=== PATIENT | male | born 1985 | race Caucasian/White ===

== ENCOUNTER 2017-04-16 09:43 | Emergency (ER) | payer SELFPAY ==
[~2017-04-16] VITALS: Ht 177.8 cm; Wt 117.9 kg
[~2017-04-16 09:43] MED LIST: HYDR-2678 PO; HYDR-3074 PO; HYDR-971 PO; OMEP20TA PO; ONDA4TAB10 SL; ONDA8TAB12 PO; PROM25TA10 PO
[2017-04-16] MEDS ORDERED: ONDANSETRON PF 4 MG/2 ML VIAL. ONE (10:03)
--- NOTE | 2017-04-16 10:09 | PHYS DOC ---
Past Medical History Past Medical History: No Pertinent History Past Surgical History: No Surgical History Alcohol Use: None Drug Use: Marijuana Adult General Chief Complaint Chief Complaint: NAUSEA/VOMITING/DIARRHA HPI HPI Patient is a 31 year old male presents to the emergency department with generalized abdominal pain with vomiting and diarrhea. Patient states the vomiting started yesterday and he cannot provide the amount of times he vomited. Patient was active and able to identify whether there was blood in the emesis as he has eaten spaghetti. Patient states she's had 3 diarrhea stools in the last 24 hours with no blood noted in the stools. Patient states he's been running a fever although has not taken his temperature. Patient does state that he has had chills. Review of Systems Review of Systems Constitutional: Denies fever or chills [] Eyes: Denies change in visual acuity, redness, or eye pain [] HENT: Denies nasal congestion or sore throat [] Respiratory: Denies cough or shortness of breath [] Cardiovascular: No additional information not addressed in HPI [] GI: abdominal pain, vomiting, and diarrhea [] : Denies dysuria or hematuria [] Musculoskeletal: Denies back pain or joint pain [] Integument: Denies rash or skin lesions [] Neurologic: Denies headache, focal weakness or sensory changes [] Endocrine: Denies polyuria or polydipsia [] Current Medications Current Medications Current Medications Medications (Trade) Dose Ordered Sig/Yaquelin Start Time Stop Time Status Last Admin Dose Admin Fentanyl Citrate (Fentanyl 2ml Vial) 50 mcg 1X ONCE 04/16/17 11:15 04/16/17 11:16 DC 04/16/17 11:04 50 MCG Ondansetron HCl (Zofran) 4 mg STK-MED ONCE 04/16/17 10:03 04/16/17 10:04 DC Promethazine HCl (Phenergan Im) 25 mg 1X ONCE 04/16/17 11:00 04/16/17 11:01 DC 04/16/17 11:00 25 MG Sodium Chloride 1,000 ml @ 1,000 mls/hr 1X ONCE 04/16/17 10:30 04/16/17 11:29 DC 04/16/17 10:05 1,000 MLS/HR Allergies Allergies Allergies Coded Allergies Type Severity Reaction Last Updated Verified Penicillins Allergy Intermediate 02/05/16 Yes Physical Exam Physical Exam Constitutional: Well developed, well nourished, no acute distress, non-toxic appearance. [] HENT: Normocephalic, atraumatic, bilateral external ears normal, oropharynx moist, no oral exudates, nose normal. [] Eyes: PERRLA, EOMI, conjunctiva normal, no discharge. [] Neck: Normal range of motion, no tenderness, supple, no stridor. [] Cardiovascular:Heart rate regular rhythm, no murmur [] Lungs & Thorax: Bilateral breath sounds clear to auscultation [] Abdomen: Bowel sounds hypoactive, soft, generalized tenderness, no masses, no pulsatile masses. Patient with no guarding noted. Skin: Warm, dry, no erythema, no rash. [] Back: No tenderness Extremities: No tenderness, no cyanosis, no clubbing, ROM intact, no edema. [] Neurologic: Alert and oriented X 3, normal motor function, normal sensory function, no focal deficits noted. [] Psychologic: Affect normal, judgement normal, mood normal. [] Current Patient Data Vital Signs Vital Signs Date Time Temp Pulse Resp B/P (MAP) Pulse Ox O2 Delivery O2 Flow Rate FiO2 04/16/17 11:37 63 20 144/117 (126) 99 04/16/17 09:54 98.1 Room Air 98.1 Lab Values Laboratory Tests Test 04/16/17 10:00 White Blood Count 11.6 x10^3/uL (4.0-11.0) H Red Blood Count 5.19 x10^6/uL (4.30-5.70) Hemoglobin 16.1 g/dL (13.0-17.5) Hematocrit 46.8 % (39.0-53.0) Mean Corpuscular Volume 90 fL (79-100) Mean Corpuscular Hemoglobin 31 pg (25-35) Mean Corpuscular Hemoglobin Concent 35 g/dL (31-37) Red Cell Distribution Width 12.8 % (11.5-14.5) Platelet Count 313 x10^3/uL (140-400) Neutrophils (%) (Auto) 55 % (31-73) Lymphocytes (%) (Auto) 31 % (24-48) Monocytes (%) (Auto) 10 % (0-9) H Eosinophils (%) (Auto) 4 % (0-3) H Basophils (%) (Auto) 1 % (0-3) Neutrophils # (Auto) 6.3 x10^3uL (1.8-7.7) Lymphocytes # (Auto) 3.6 x10^3/uL (1.0-4.8) Monocytes # (Auto) 1.1 x10^3/uL (0.0-1.1) Eosinophils # (Auto) 0.5 x10^3/uL (0.0-0.7) Basophils # (Auto) 0.1 x10^3/uL (0.0-0.2) Platelet Estimate Pending Sodium Level 142 mmol/L (136-145) Potassium Level 4.4 mmol/L (3.5-5.1) Chloride Level 104 mmol/L (98-107) Carbon Dioxide Level 28 mmol/L (21-32) Anion Gap 10 (6-14) Blood Urea Nitrogen 15 mg/dL (8-26) Creatinine 0.9 mg/dL (0.7-1.3) Estimated GFR (Cockcroft-Gault) 99.1 BUN/Creatinine Ratio 17 (6-20) Glucose Level 137 mg/dL (70-99) H Calcium Level 9.6 mg/dL (8.5-10.1) Total Bilirubin 0.4 mg/dL (0.2-1.0) Aspartate Amino Transferase (AST) 40 U/L (15-37) H Alanine Aminotransferase (ALT) 97 U/L (16-63) H Alkaline Phosphatase 104 U/L (46-116) Total Protein 7.7 g/dL (6.4-8.2) Albumin 4.0 g/dL (3.4-5.0) Albumin/Globulin Ratio 1.1 (1.0-1.7) Amylase Level 52 U/L (25-115) Lipase 242 U/L (73-393) Laboratory Tests 04/16/17 10:00 Laboratory Tests 04/16/17 10:00 EKG EKG [] Radiology/Procedures Radiology/Procedures [] Course & Med Decision Making Course & Med Decision Making Pertinent Labs and Imaging studies reviewed. (See chart for details) She was provided with Zofran here in the emergency department patient was also provided with 1 L of normal saline. Patient then had dry heaves after he came back from radiology he was then provided with Phenergan IM. He continued to have abdominal pain and discomfort and was provided with fentanyl. Patient's CBC and chemistries are within normal limits. X-rays was normal. Patient will be discharged home in stable condition signs symptoms to return back to emergency department been provided. Patient will be provided with a prescription for Zofran as well as Benadryl. Recommended he follow up with his GI physician in the next 3-5 days. Dragon Disclaimer Dragon Disclaimer This electronic medical record was generated, in whole or in part, using a voice recognition dictation system. Departure Departure Impression: Primary Impression: Abdominal pain Additional Impression: Nausea vomiting and diarrhea Disposition: HOME, SELF-CARE Condition: STABLE Referrals: RUI CARNEY MD (PCP) Patient Instructions: Abdominal Pain (Nonspecific), Diarrhea, Ahat-cf-Acer, Diet for Diarrhea, Adult, Nausea and Vomiting, [id number] Additional Instructions: Activity as tolerated. Medication as prescribed. Clear Liquid diet for the next 24 hours. Follow-up with your GI physician in the next 3-5 days. Emergency department sign symptoms become worse. Scripts Dicyclomine Hcl (BENTYL) 10 Mg Capsule 1 CAP PO TID, #30 CAP Prov: CATRACHO RAMIREZ APRN 04/16/17 Ondansetron (ZOFRAN ODT) 4 Mg Tab.rapdis 1 TAB SL Q8HRS, #10 TAB Prov: CATRACHO RAMIREZ APRN 04/16/17 Problem Qualifiers CATRACHO RAMIREZ APRN April 16, 2017 10:09
[2017-04-16 10:22] LABS: CALCIUM 9.6 mg/dL (8.5-10.1); CREATININE 0.9 mg/dL (0.7-1.3); GFR 99.1; POTASSIUM 4.4 mmol/L (3.5-5.1)
[2017-04-16 10:23] LABS: AMYLASE 52 U/L (25-115)
[2017-04-16 10:28] LABS: ALBUMIN/GLOBULIN RATIO 1.1 (1.0-1.7); TOTAL BILIRUBIN 0.4 mg/dL (0.2-1.0); TOTAL PROTEIN 7.7 g/dL (6.4-8.2)
[2017-04-16] MEDS ORDERED: IV NORMAL SALINE 1000ML BAG 1,000 ML IV ONE (10:30)
[2017-04-16] MEDS ORDERED: ONDANSETRON PF 4 MG/2 ML VIAL. IV ONE (10:30)
--- NOTE | 2017-04-16 10:32 | RAD ---
Examination: Acute abdomen series. History: History of pain in the upper abdomen, nausea Comparison: 10/08/2016 Findings: The cardiomediastinal silhouette grossly appears unremarkable. There is no acute infiltrate or visualized pneumothorax identified. No evidence of free air noted under the hemidiaphragms. The bowel gas pattern appears unremarkable. Feces and gas noted throughout the colon. Impression: 1. No acute cardiopulmonary findings. 2. Unremarkable bowel gas pattern.
[2017-04-16 10:52] LABS: BASO # 0.1 x10^3/uL (0.0-0.2); BASO % 1 % (0-3); EOS % 4 % (0-3); HEMATOCRIT 46.8 % (39.0-53.0); HEMOGLOBIN 16.1 g/dL (13.0-17.5); LYMPH # 3.6 x10^3/uL (1.0-4.8); LYMPH % 31 % (24-48); MEAN CORPUSCULAR HEMOGLOBIN 31 pg (25-35); MEAN CORPUSCULAR HGB CONC 35 g/dL (31-37); MEAN CORPUSCULAR VOLUME 90 fL (79-100); MONO % 10 % (0-9); NEUT % 55 % (31-73); PLATELET COUNT 313 x10^3/uL (140-400); RED BLOOD COUNT 5.19 x10^6/uL (4.30-5.70); RED CELL DISTRIBUTION WIDTH 12.8 % (11.5-14.5); WHITE BLOOD COUNT 11.6 x10^3/uL (4.0-11.0)
[2017-04-16] MEDS ORDERED: PROMETHAZINE IM 25 MG/ML VIAL IM ONE (11:00)
[2017-04-16] MEDS ORDERED: fentaNYL PF VIAL 100 MCG/2 ML VIAL IV ONE (11:15)
[2017-04-16 11:37] VITALS: BP 144/117
[2017-04-16] MEDS ORDERED: DICY10CA53 PO (11:59)
[2017-04-16] MEDS ORDERED: ONDA4TAB10 SL (11:59)
[2017-04-16 12:30] LABS: % BASOS 2 % (0-3); % EOS 5 % (0-5); PLT ESTIMATE ADEQUATE (ADEQUATE)
== END 2017-04-16 12:16 | disposition home or self-care (01) ==
LOC: ER 09:43
DX: R10.84 Generalized abdominal pain (principal); R11.2 Nausea with vomiting, unspecified; R19.7 Diarrhea, unspecified; R50.9 Fever, unspecified; F12.10 Cannabis abuse, uncomplicated; Z88.0 Allergy status to penicillin
CPT/HCPCS: 36415; 74022; 80053; 82150; 83690; 85007; 85027; 96361; 96372; 96374; 96375; 99285; J2405; J2550; J3010; J7030

== ENCOUNTER 2018-02-10 17:24 | Emergency (ER) | payer SELFPAY ==
[2018-02-10] MEDS: IV NORMAL SALINE 1000ML BAG 1,000 ML IV (18:35)
[2018-02-10 18:41] LABS: ADD MAN DIFF? NO
[2018-02-10] MEDS ORDERED: CONTRAST GIVEN MC (18:45)
[2018-02-10 18:50] LABS: BASO # 0.1 x10^3/uL (0.0-0.2); BASO % 1 % (0-3); EOS % 0 % (0-3); HEMATOCRIT 44.6 % (39.0-53.0); HEMOGLOBIN 15.7 g/dL (13.0-17.5); LYMPH # 1.7 x10^3/uL (1.0-4.8); LYMPH % 12 % (24-48); MEAN CORPUSCULAR HEMOGLOBIN 31 pg (25-35); MEAN CORPUSCULAR HGB CONC 35 g/dL (31-37); MEAN CORPUSCULAR VOLUME 88 fL (79-100); MONO # 0.8 x10^3/uL (0.0-1.1); MONO % 6 % (0-9); NEUT % 82 % (31-73); PLATELET COUNT 361 x10^3/uL (140-400); RED BLOOD COUNT 5.05 x10^6/uL (4.30-5.70); RED CELL DISTRIBUTION WIDTH 12.7 % (11.5-14.5); WHITE BLOOD COUNT 14.6 x10^3/uL (4.0-11.0)
[2018-02-10 18:58] LABS: ANION GAP 11 (6-14); BLOOD UREA NITROGEN 9 mg/dL (8-26); BUN/CREATININE RATIO 9 (6-20); CALCIUM 9.4 mg/dL (8.5-10.1); CARBON DIOXIDE 26 mmol/L (21-32); CHLORIDE 101 mmol/L (98-107); GFR 87.2; GLUCOSE 135 mg/dL (70-99); POTASSIUM 3.1 mmol/L (3.5-5.1); SODIUM 138 mmol/L (136-145)
[2018-02-10] MEDS: METOCLOPRAMIDE HCL 10 MG/2 ML VIAL. IV (18:58)
[2018-02-10 19:02] LABS: ALBUMIN 4.2 g/dL (3.4-5.0); ALBUMIN/GLOBULIN RATIO 1.1 (1.0-1.7); ALK PHOS 86 U/L (46-116); ALT (SGPT) 85 U/L (16-63); AST (SGOT) 33 U/L (15-37); LIPASE 170 U/L (73-393); TOTAL BILIRUBIN 0.9 mg/dL (0.2-1.0); TOTAL PROTEIN 7.9 g/dL (6.4-8.2)
[2018-02-10] MEDS: IOHEXOL 300 MG/ML 100ML VIAL. IV (19:12)
[2018-02-10 19:17] LABS: BILIRUBIN,URINE NEGATIVE (NEG); CLARITY,URINE CLEAR; COLOR,URINE YELLOW; GLUCOSE,URINE NEGATIVE (NEG); NITRITE,URINE NEGATIVE (NEG); PROTEIN,URINE NEGATIVE (NEG-TRACE); UROBILINOGEN,URINE 0.2 mg/dL (0.2 mg/dL)
[2018-02-10 19:23] LABS: BACTERIA,URINE 0 /HPF (0-FEW); RBC,URINE OCC /HPF (0-2); SQUAMOUS EPITHELIAL CELL,UR OCC /LPF; WBC,URINE OCC /HPF (0-4)
[2018-02-10 19:51] LABS: TROPONINI < 0.017 ng/mL (0.000-0.055)
[2018-02-10 20:10] LABS: INFLUENZA A PATIENT NEGATIVE (NEGATIVE); INFLUENZA B PATIENT NEGATIVE (NEGATIVE); OBC FLU VALID
== END 2018-02-10 21:34 | disposition home or self-care (01) ==
LOC: ER 17:24
DX: R10.84 Generalized abdominal pain (principal); R11.2 Nausea with vomiting, unspecified; F12.10 Cannabis abuse, uncomplicated; Z88.0 Allergy status to penicillin
CPT/HCPCS: 36415; 74177; 80053; 81001; 83690; 84484; 85025; 87804; 87804-59; 96361; 96374; 99285-25; J2765; J7030; Q9967

== ENCOUNTER 2020-04-25 05:43 | Emergency (ER) | payer OTHER ==
[~2020-04-25] VITALS: Ht 177.8 cm; Wt 104.5 kg
[~2020-04-25 05:43] MED LIST changes: +DICY10CA53 PO; -HYDR-3074 PO; +HYDR-3107 PO; +HYDR-3164 PO; -HYDR-971 PO; -OMEP20TA PO; +OMEP20TA8 PO
--- NOTE | 2020-04-25 06:15 | PHYS DOC ---
Past Medical History Past Medical History: Hypertension Past Surgical History: No Surgical History Smoking Status: Current Every Day Smoker Alcohol Use: None Drug Use: Marijuana General Adult EDM: Chief Complaint: rectum pain, lower abdominal pain HPI: HPI: Patient is a 34 year old male who presented to ER today for evaluation of low abdominal pain, rectal pain, blood in his stool for about 3 days. Patient also complained of nausea and vomiting. Patient has history of abdominal pain that he been evaluated by GI specialist already. Patient denies any fever, no cough. Patient denies take any blood thinner. Patient complained of pain when he had a bowel movement, noted bright red blood in his stool. Review of Systems: Review of Systems: Constitutional: Denies fever or chills. [] Eyes: Denies change in visual acuity. [] HENT: Denies nasal congestion or sore throat. [] Respiratory: Denies cough or shortness of breath. [] Cardiovascular: Denies chest pain or edema. [] GI: Positive for abdominal pain, rectal pain, bloody stool. : Denies dysuria. [] Musculoskeletal: Denies back pain or joint pain. [] Integument: Denies rash. [] Neurologic: Denies headache, focal weakness or sensory changes. [] Endocrine: Denies polyuria or polydipsia. [] Lymphatic: Denies swollen glands. [] Psychiatric: Denies depression or anxiety. [] Heart Score: Risk Factors: Risk Factors: DM, Current or recent (<one month) smoker, HTN, HLP, family history of CAD, obesity. Risk Scores: Score 0 - 3: 2.5% MACE over next 6 weeks - Discharge Home Score 4 - 6: 20.3% MACE over next 6 weeks - Admit for Clinical Observation Score 7 - 10: 72.7% MACE over next 6 weeks - Early Invasive Strategies Allergies: Allergies: Allergies Coded Allergies Type Severity Reaction Last Updated Verified Penicillins Allergy Intermediate 02/05/16 Yes Physical Exam: PE: Constitutional: Well developed, well nourished, no acute distress, non-toxic appearance. [] HENT: Normocephalic, atraumatic, bilateral external ears normal, oropharynx moist, no oral exudates, nose normal. [] Eyes: PERRLA, EOMI, conjunctiva normal, no discharge. [] Neck: Normal range of motion, no tenderness, supple, no stridor. [] Cardiovascular:Heart rate regular rhythm, no murmur [] Lungs & Thorax: Bilateral breath sounds clear to auscultation [] Abdomen: Bowel sounds normal, soft, there is tenderness to palpation in suprapubic area, no masses, no pulsatile masses. There is no external hemorrhoids. NO rectal bleeding at this time. Skin: Warm, dry, no erythema, no rash. [] Back: No tenderness, no CVA tenderness. [] Extremities: No tenderness, no cyanosis, no clubbing, ROM intact, no edema. [] Neurologic: Alert and oriented X 3, normal motor function, normal sensory function, no focal deficits noted. [] Psychologic: Affect normal, judgement normal, mood normal. [] Current Patient Data: Vital Signs: Vital Signs Date Time Temp Pulse Resp B/P (MAP) Pulse Ox O2 Delivery O2 Flow Rate FiO2 04/25/20 06:03 98.6 100 16 137/62 (87) 97 Room Air 98.6 EKG: EKG: [] Radiology/Procedures: Radiology/Procedures: [facility] [address] [place] [address] IMAGING REPORT Signed PATIENT: ABIGAIL HARO MACCOUNT: [id number] : 1985 LOCATION: ER AGE: 34 SEX: M EXAM STATUS: REG ER ORD. PHYSICIAN: FABBY TODD DO REASON: Lower abdominal pain, rectal pain. PROCEDURE: CT ABD PELV W/ IV CONTRST ONLY Examination: CT ABD PELV W/ IV CONTRST ONLY History: Lower abdominal pain. Rectal pain. Comparison/Correlation: 02/10/2018 CT abdomen and pelvis Findings: Axial images of the abdomen and pelvis were obtained following IV contrast. Sagittal and coronal reformatted images were provided. Visualized lung bases are clear. Small sliding hiatal hernia is present. Liver, spleen, pancreas, and adrenal glands are normal. Right kidney is normal. Low-attenuation lesion involving the left renal interpolar region is stable and probably represents a cyst. No further follow-up required. Appendix is normal. Diverticulosis is present without findings of inflammation. No enlarged abdominal or pelvic lymph nodes. No ascites or pelvic free fluid in gallbladder fossa is unremarkable. No bowel obstruction. No inflammatory findings about the rectum. Urinary bladder is unremarkable. Bilateral L5 pars interarticularis fractures are again seen with no significant anterolisthesis. Moderate L4-5 disc space narrowing with mild concentric disc bulge is identified. Impression: Small sliding hiatal hernia. Bilateral L5 pars interarticularis fractures without significant malalignment. No acute process. PQRS Compliance Statement: One or more of the following individualized dose reduction techniques were utilized for this examination: 1. Automated exposure control 2. Adjustment of the mA and/or kV according to patient size 3. Use of iterative reconstruction technique Electronically signed by: Jack Salas MD (04/25/2020 8:08 AM) [id number] DICTATED and SIGNED BY: JACK SALAS MD DATE: 04/25/20807 Course & Med Decision Making: Course & Med Decision Making Pertinent Labs and Imaging studies reviewed. (See chart for details) Patient is a 34-year-old male who presented to ER today due to abdominal pain, rectal pain. Patient most likely has some poor form of hemorrhoid. There is no active rectal bleeding, no external hemorrhoid noted on examination. Patient also has sliding hiatal hernia causing him to have abdominal pain, acid reflux. Patient will be discharged home with medication. Patient will need to follow- up with a GI doctor for further evaluation and treatment. Patient is amenable to plan of care. Dragon Disclaimer: Dragbereket Disclaimer: This electronic medical record was generated, in whole or in part, using a voice recognition dictation system. Departure Departure Impression: Primary Impression: Abdominal pain Additional Impressions: Rectal pain Hiatal hernia Disposition: 01 HOME, SELF-CARE Condition: STABLE Referrals: NO PCP (PCP) please follow up with your GI doctor next week for reevaluation. Patient Instructions: Abdominal Pain, Hiatal Hernia Scripts Tramadol Hcl (TRAMADOL HCL) 50 Mg Tablet 50 MG PO Q6HRS PRN for PAIN, #20 TAB Prov: FABBY TODD DO 04/25/20 Hydrocortisone (ANUSOL-HC) 30 Gm Cream..g. 1 GEMMA TP TID for 10 Days, #30 GM 0 Refills Prov: FABBY TODD DO 04/25/20 Omeprazole Magnesium (PRILOSEC OTC) 20 Mg Tablet.dr 1 TAB PO DAILY for 30 Days, #30 TAB 0 Refills Prov: FABBY TODD DO 04/25/20 Sucralfate (CARAFATE) 1 Gm Tablet 1 TAB PO QID for 30 Days, #120 TAB 0 Refills Prov: FABBY TODD DO 04/25/20 FABBY TODD DO April 25, 2020 06:15
[2020-04-25 06:33] LABS: BILIRUBIN,URINE NEGATIVE (NEG); CLARITY,URINE CLEAR; COLOR,URINE YELLOW; NITRITE,URINE NEGATIVE (NEG); PH,URINE 5.5 (<5.0-8.0); PROTEIN,URINE NEGATIVE (NEG-TRACE); UROBILINOGEN,URINE 0.2 mg/dL (0.2 mg/dL)
[2020-04-25 06:38] LABS: BASO # 0.1 x10^3/uL (0.0-0.2); BASO % 1 % (0-3); EOS # 0.6 x10^3/uL (0.0-0.7); EOS % 6 % (0-3); HEMATOCRIT 43.2 % (39.0-53.0); HEMOGLOBIN 15.4 g/dL (13.0-17.5); LYMPH # 3.2 x10^3/uL (1.0-4.8); LYMPH % 31 % (24-48); MEAN CORPUSCULAR HEMOGLOBIN 32 pg (25-35); MEAN CORPUSCULAR HGB CONC 36 g/dL (31-37); MEAN CORPUSCULAR VOLUME 90 fL (79-100); MONO # 1.2 x10^3/uL (0.0-1.1); MONO % 11 % (0-9); NEUT # 5.5 x10^3/uL (1.8-7.7); NEUT % 52 % (31-73); PLATELET COUNT 391 x10^3/uL (140-400); RED BLOOD COUNT 4.82 x10^6/uL (4.30-5.70); RED CELL DISTRIBUTION WIDTH 12.7 % (11.5-14.5); WHITE BLOOD COUNT 10.6 x10^3/uL (4.0-11.0)
[2020-04-25 06:42] LABS: CALCIUM 9.4 mg/dL (8.5-10.1); GFR 86.1; POTASSIUM 3.7 mmol/L (3.5-5.1)
[2020-04-25 06:47] LABS: ALBUMIN 4.3 g/dL (3.4-5.0); ALBUMIN/GLOBULIN RATIO 1.2 (1.0-1.7); TOTAL BILIRUBIN 0.6 mg/dL (0.2-1.0); TOTAL PROTEIN 7.8 g/dL (6.4-8.2)
[2020-04-25 06:51] LABS: BACTERIA,URINE 0 /HPF (0-FEW); HYALINE CASTS, URINE OCCASIONAL /HPF; RBC,URINE 0 /HPF (0-2); SQUAMOUS EPITHELIAL CELL,UR OCC /LPF
[2020-04-25] MEDS ORDERED: IOHEXOL 300 MG/ML 100ML VIAL. IV ONE (07:15)
[2020-04-25] MEDS ORDERED: CONTRAST GIVEN. MC PRN (07:45)
--- NOTE | 2020-04-25 08:11 | RAD ---
Examination: CT ABD PELV W/ IV CONTRST ONLY History: Lower abdominal pain. Rectal pain. Comparison/Correlation: 02/10/2018 CT abdomen and pelvis Findings: Axial images of the abdomen and pelvis were obtained following IV contrast. Sagittal and coronal reformatted images were provided. Visualized lung bases are clear. Small sliding hiatal hernia is present. Liver, spleen, pancreas, and adrenal glands are normal. Right kidney is normal. Low-attenuation lesion involving the left renal interpolar region is stable and probably represents a cyst. No further follow-up required. Appendix is normal. Diverticulosis is present without findings of inflammation. No enlarged abdominal or pelvic lymph nodes. No ascites or pelvic free fluid in gallbladder fossa is unremarkable. No bowel obstruction. No inflammatory findings about the rectum. Urinary bladder is unremarkable. Bilateral L5 pars interarticularis fractures are again seen with no significant anterolisthesis. Moderate L4-5 disc space narrowing with mild concentric disc bulge is identified. Impression: Small sliding hiatal hernia. Bilateral L5 pars interarticularis fractures without significant malalignment. No acute process. PQRS Compliance Statement: One or more of the following individualized dose reduction techniques were utilized for this examination: 1. Automated exposure control 2. Adjustment of the mA and/or kV according to patient size 3. Use of iterative reconstruction technique Electronically signed by: Jack Salas MD (04/25/2020 8:08 AM) [id number]
[2020-04-25] MEDS ORDERED: TRAM50TA PO (08:52)
[2020-04-25] MEDS ORDERED: SUCR1TAB35 PO (08:52)
[2020-04-25] MEDS ORDERED: OMEP20TA63 PO (08:52)
[2020-04-25] MEDS ORDERED: HYDR30CR61 TP (08:52)
[2020-04-25 08:55] VITALS: BP 132/69
== END 2020-04-25 09:00 | disposition home or self-care (01) ==
LOC: ER 05:43
DX: K44.9 Diaphragmatic hernia without obstruction or gangrene (principal); I10 Essential (primary) hypertension; F17.200 Nicotine dependence, unspecified, uncomplicated; Z88.0 Allergy status to penicillin
CPT/HCPCS: 36415; 74177; 80053; 81001; 83690; 85025; 99285; Q9967

== ENCOUNTER 2021-03-03 16:20 | Emergency (ER) | payer OTHER ==
[~2021-03-03] VITALS: Ht 177.8 cm; Wt 113.0 kg
[~2021-03-03 16:20] MED LIST changes: +HYDR30CR61 TP; +LISI20TA18 PO; +OMEP20TA63 PO; +SUCR1TAB35 PO; +TRAM50TA PO
[2021-03-03] MEDS ORDERED: ONDANSETRON PF 4 MG/2 ML VIAL. IVP ONE ×2 (16:45→19:15)
[2021-03-03] MEDS ORDERED: FAMOTIDINE 20 MG/2 ML VIAL IVP ONE (16:45)
[2021-03-03] MEDS ORDERED: IV NORMAL SALINE 1000ML BAG 1,000 ML IV ONE (16:45)
[2021-03-03] MEDS ORDERED: KETOROLAC 15 MG/ML VIAL. IVP ONE (16:45)
[2021-03-03 17:13] LABS: BASO # 0.1 x10^3/uL (0.0-0.2); BASO % 0 % (0-3); EOS % 0 % (0-3); HEMATOCRIT 41.7 % (39.0-53.0); HEMOGLOBIN 14.6 g/dL (13.0-17.5); LYMPH # 1.7 x10^3/uL (1.0-4.8); LYMPH % 11 % (24-48); MEAN CORPUSCULAR HEMOGLOBIN 31 pg (25-35); MEAN CORPUSCULAR HGB CONC 35 g/dL (31-37); MEAN CORPUSCULAR VOLUME 89 fL (79-100); MONO # 0.7 x10^3/uL (0.0-1.1); MONO % 4 % (0-9); NEUT # 13.9 x10^3/uL (1.8-7.7); NEUT % 85 % (31-73); PLATELET COUNT 371 x10^3/uL (140-400); RED BLOOD COUNT 4.71 x10^6/uL (4.30-5.70); RED CELL DISTRIBUTION WIDTH 12.6 % (11.5-14.5); WHITE BLOOD COUNT 16.4 x10^3/uL (4.0-11.0)
[2021-03-03 17:18] LABS: CALCIUM 9.5 mg/dL (8.5-10.1); GFR 85.5; POTASSIUM 3.5 mmol/L (3.5-5.1)
[2021-03-03 17:24] LABS: ALBUMIN 4.1 g/dL (3.4-5.0); ALBUMIN/GLOBULIN RATIO 1.1 (1.0-1.7); TOTAL BILIRUBIN 0.9 mg/dL (0.2-1.0); TOTAL PROTEIN 7.7 g/dL (6.4-8.2)
[2021-03-03] MEDS ORDERED: IOHEXOL 300 MG/ML 100ML VIAL. IV ONE (17:30)
--- NOTE | 2021-03-03 17:40 | PHYS DOC ---
Past Medical History Past Medical History: GERD, Hypertension Additional Past Medical Histor: gastroparesis (MARGAUX CUTLER DO) Past Surgical History: No Surgical History (MARGAUX CUTLER DO) Smoking Status: Current Every Day Smoker Alcohol Use: None Drug Use: Marijuana (MARGAUX CUTLER DO) General Adult EDM: Chief Complaint: ABDOMINAL PAIN HPI: HPI: 35-year-old male presents with report of "severe "epigastric abdominal pain that started this morning at approximately 0300. Patient does report some associated nausea and vomiting. Patient does report history of gastritis/gastric ulcers, gastroparesis, and chronic abdominal pain. Denies known sick contacts. Denies fever or chills. Denies trauma. Denies known exposure to COVID-19. (MARGAUX CUTLER DO) Review of Systems: Review of Systems: Constitutional: Denies fever or chills Eyes: Denies redness or eye pain HENT: Denies nasal congestion or sore throat Respiratory: Denies cough or shortness of breath Cardiovascular: Denies chest pain or palpitations GI: Reports abdominal pain and nausea : Denies dysuria or hematuria Musculoskeletal: Denies back pain or joint pain Integument: Denies rash or skin lesions Neurologic: Denies headache, focal weakness or sensory changes Complete systems were reviewed and found to be within normal limits, except as documented in this note. (MARGAUX CUTLER DO) Heart Score: C/O Chest Pain: N/A (MARGAUX CUTLER DO) Current Medications: Current Medications Medications (Trade) Dose Ordered Sig/Yaquelin Start Time Stop Time Status Last Admin Dose Admin Famotidine (Pepcid Vial) 20 mg 1X ONCE 03/03/21 16:45 03/03/21 16:52 DC 03/03/21 17:15 20 MG Iohexol (Omnipaque 300 Mg/ml) 75 ml 1X ONCE 03/03/21 17:30 03/03/21 17:31 DC Ketorolac Tromethamine (Toradol 15mg Vial) 15 mg 1X ONCE 03/03/21 16:45 03/03/21 16:52 DC 03/03/21 17:15 15 MG Ondansetron HCl (Zofran) 4 mg 1X ONCE 03/03/21 16:45 03/03/21 16:52 DC 03/03/21 17:15 4 MG Sodium Chloride 1,000 ml @ 1,000 mls/hr 1X ONCE 03/03/21 16:45 03/03/21 17:44 03/03/21 17:14 1,000 MLS/HR (MARGAUX CUTLER DO) Allergies: Allergies: Allergies Coded Allergies Type Severity Reaction Last Updated Verified Penicillins Allergy Intermediate 02/05/16 Yes (MARGAUX CUTLER DO) Physical Exam: PE: Constitutional: Well developed, well nourished, uncomfortable, non-toxic appearance HENT: Normocephalic, atraumatic Eyes: Conjunctiva normal, no discharge Neck: Normal range of motion, supple Lungs & Thorax: No respiratory distress, equal chest rise and fall Abdomen: Soft, epigastric tenderness, voluntary guarding, no distention Skin: Warm, dry, no erythema, no rash Back: No tenderness, no CVA tenderness Extremities: No tenderness, ROM intact, no edema Neurologic: Alert and oriented X 3, no focal deficits noted Psychologic: Affect anxious, judgment normal (MARGAUX CUTLER DO) Current Patient Data: Labs: Laboratory Tests Test 03/03/21 16:55 White Blood Count 16.4 x10^3/uL (4.0-11.0) H Red Blood Count 4.71 x10^6/uL (4.30-5.70) Hemoglobin 14.6 g/dL (13.0-17.5) Hematocrit 41.7 % (39.0-53.0) Mean Corpuscular Volume 89 fL (79-100) Mean Corpuscular Hemoglobin 31 pg (25-35) Mean Corpuscular Hemoglobin Concent 35 g/dL (31-37) Red Cell Distribution Width 12.6 % (11.5-14.5) Platelet Count 371 x10^3/uL (140-400) Neutrophils (%) (Auto) 85 % (31-73) H Lymphocytes (%) (Auto) 11 % (24-48) L Monocytes (%) (Auto) 4 % (0-9) Eosinophils (%) (Auto) 0 % (0-3) Basophils (%) (Auto) 0 % (0-3) Neutrophils # (Auto) 13.9 x10^3/uL (1.8-7.7) H Lymphocytes # (Auto) 1.7 x10^3/uL (1.0-4.8) Monocytes # (Auto) 0.7 x10^3/uL (0.0-1.1) Eosinophils # (Auto) 0.0 x10^3/uL (0.0-0.7) Basophils # (Auto) 0.1 x10^3/uL (0.0-0.2) Platelet Estimate Pending Sodium Level 134 mmol/L (136-145) L Potassium Level 3.5 mmol/L (3.5-5.1) Chloride Level 95 mmol/L (98-107) L Carbon Dioxide Level 25 mmol/L (21-32) Anion Gap 14 (6-14) Blood Urea Nitrogen 17 mg/dL (8-26) Creatinine 1.0 mg/dL (0.7-1.3) Estimated GFR (Cockcroft-Gault) 85.5 BUN/Creatinine Ratio 17 (6-20) Glucose Level 148 mg/dL (70-99) H Calcium Level 9.5 mg/dL (8.5-10.1) Total Bilirubin 0.9 mg/dL (0.2-1.0) Aspartate Amino Transferase (AST) 26 U/L (15-37) Alanine Aminotransferase (ALT) 37 U/L (16-63) Alkaline Phosphatase 68 U/L (46-116) Creatine Kinase 438 U/L (39-308) H Creatine Kinase MB (Mass) 3.1 ng/mL (0.0-3.6) Creatine Kinase MB Relative Index 0.7 % (0-4) Troponin I Quantitative < 0.017 ng/mL (0.000-0.055) Total Protein 7.7 g/dL (6.4-8.2) Albumin 4.1 g/dL (3.4-5.0) Albumin/Globulin Ratio 1.1 (1.0-1.7) Lipase 100 U/L (73-393) Laboratory Tests 03/03/21 16:55 Laboratory Tests 03/03/21 16:55 Vital Signs: Vital Signs Date Time Temp Pulse Resp B/P (MAP) Pulse Ox O2 Delivery O2 Flow Rate FiO2 03/03/21 16:55 100.1 85 22 172/85 (114) 99 Room Air 100.1 (CUTLER,MARGAUX R DO) EKG: EKG: @1710 Sinus tachycardia at 103bpm, NO ST elevation, QRS 92ms, QT/QTc 348/458ms (MARGAUX CUTLER DO) Radiology/Procedures: Radiology/Procedures: [] (MARGAUX CUTLER DO) Impression: CT abdomen/pelvis with contrast 03/03/2021 5:22 PM INDICATION: Epigastric pain, nausea and vomiting COMPARISON: CT abdomen/pelvis 10/04/2020 TECHNIQUE: Multiple axial CT images of the abdomen and pelvis were obtained after the intravenous administration of 75 mL Omnipaque 300. Coronal and sagittal reformats are provided. FINDINGS: Visualized portions of the lung bases are clear. Heart size is within normal limits. No suspicious hepatic masses are identified. Mild hepatic steatosis, stable. Liver is homogeneous in enhancement. Spleen, bilateral adrenal glands, and pancreas are normal in appearance. Gallbladder is present without adjacent inflammatory changes. The abdominal aorta is normal in course and caliber. There are no pathologically enlarged lymph nodes in the abdomen and pelvis. There is no abdominal free fluid. There is no free intraperitoneal air. The kidneys enhance symmetrically. There is no suspicious renal mass. There is no hydronephrosis. There are no suspected calculi within the kidneys, ureters or urinary bladder. Small and large bowel are normal in caliber. Mild colonic diverticulosis. There is no evidence for bowel obstruction. There are no pericolonic inflammatory changes. A normal, nondilated appendix is visualized without adjacent inflammatory changes. Left testicle is identified in the left inguinal canal. Urinary bladder is within normal limits given degree of distention. Prostate and seminal vesicles are normal. IMPRESSION: No acute abnormality is identified as described in detail above. Electronically signed by: Gregoria Porter MD (03/03/2021 6:14 PM) [facility] (CLAUDE HARVEY DO) Course & Med Decision Making: Course & Med Decision Making Pertinent Labs and Imaging studies reviewed. (See chart for details) Patient presents with report of abdominal pain which started this morning primarily to epigastric region. Reports some nausea. Reports history of gastric ulcers. Symptomatic treatment provided. EKG stable. Labs obtained and posted to chart. CT abdomen/pelvis radiologist report pending. 1800- Sign out provided to Dr. Harvey for further evaluation and final disposition. Discussed current findings and plan with patient, who acknowledges understanding and agreement. Patient discharge paperwork provided if CT without acute process. Patient advised would need to follow closely with PCP and/or GI regarding further evaluation and treatment. GI referral planned for discharge, if appropriate. (MARGAUX CUTLER DO) Course & Med Decision Making assumed care at shift change disposition pending labs.radiology and re-evaluation. CK elevated- no other acute abnormalities. CT without acute abnormalities. Patient received IV fluids. I ordered morphine, zofran and bentyl. Discussed possible cause such as THC uses-- patient states he smoke and has been told that could be possible cause of symptoms. Patient states he does not beleive thc is cause. Discharge paper work prepared by Dr Cutler--- agree with [facility] plan and mediations. (CLAUDE HARVEY DO) Dragon Disclaimer: Dragon Disclaimer: This electronic medical record was generated, in whole or in part, using a voice recognition dictation system. (MARGAUX CUTLER DO) Departure Departure Impression: Primary Impression: Epigastric abdominal pain Additional Impression: Nausea and vomiting Qualified Codes: R11.2 - Nausea with vomiting, unspecified Disposition: 01 DC HOME SELF CARE/HOMELESS Condition: STABLE Referrals: TRISTAN TRISTAN DO (PCP) BLANQUITA SAUNDERS MD Patient Instructions: Abdominal Pain, Grqg-[id number], Gastritis, Adult, Gyom-[id number], Nausea and Vomiting, Pxlk-yr-Uiyb Scripts Famotidine (PEPCID) 20 Mg Tablet 20 MG PO BID, #20 TAB Prov: MARGAUX CUTLER DO 03/03/21 Hyoscyamine Sulfate (LEVSIN-SL) 0.125 Mg Tab.subl 0.125 MG SL Q4-6HRS PRN for PAIN, #14 TAB Prov: MARGAUX CUTLER DO 03/03/21 Ondansetron (ONDANSETRON ODT) 4 Mg Tab.rapdis 1 TAB PO PRN Q6-8HRS PRN for NAUSEA, #16 TAB Prov: MARGAUX CUTLER DO 03/03/21 MARGAUX CUTLER DO Mar 03, 2021 17:40 CLAUDE HARVEY DO Mar 03, 2021 18:27
[2021-03-03] MEDS ORDERED: ONDA4TAB12 PO (17:47)
[2021-03-03] MEDS ORDERED: FAMO-63 PO (17:47)
[2021-03-03] MEDS ORDERED: HYOS0.1265 SL (17:47)
[2021-03-03] MEDS ORDERED: HYOSCYAMINE 0.125 MG TAB.RAPDIS PO ONE (18:15)
--- NOTE | 2021-03-03 18:16 | RAD ---
PQRS Compliance Statement: One or more of the following individualized dose reduction techniques were utilized for this examinat ion: 1. Automated exposure control 2. Adjustment of the mA and/or kV according to patient size 3. Use of iterative reconstruction technique CT abdomen/pelvis with contrast 03/03/2021 5:22 PM INDICATION: Epigastric pain, nausea and vomiting COMPARISON: CT abdomen/pelvis 10/04/2020 TECHNIQUE: Multiple axial CT images of the abdomen and pelvis were obtained after the intravenous adm inistration of 75 mL Omnipaque 300. Coronal and sagittal reformats are provided. FINDINGS: Visualized portions of the lung bases are clear. Heart size is within normal limits. No suspicious hepatic masses are identified. Mild hepatic steatosis, stable. Liver is homogeneous in enhancement. Spleen, bilateral adrenal glands, and pancreas are normal in appearance. Gallbladder is present without adjacent inflammatory changes. The abdominal aorta is normal in course and caliber. There are no pathologically enlarged lymph nodes in the abdomen and pelvis. There is no abdominal free fluid. There is no free intraperitoneal air. The kidneys enhance symmetrically. There is no suspicious renal mass. There is no hydronephrosis. The re are no suspected calculi within the kidneys, ureters or urinary bladder. Small and large bowel are normal in caliber. Mild colonic diverticulosis. There is no evidence for jimbo wel obstruction. There are no pericolonic inflammatory changes. A normal, nondilated appendix is visu alized without adjacent inflammatory changes. Left testicle is identified in the left inguinal canal. Urinary bladder is within normal limits given degree of distention. Prostate and seminal vesicles ar e normal. IMPRESSION: No acute abnormality is identified as described in detail above. Electronically signed by: Gregoria Porter MD (03/03/2021 6:14 PM) [facility]
[2021-03-03 18:31] LABS: % ATYL 1 % (0-0); % BANDS 11 % (0-9); % LYMPHS 15 % (24-48); % MONOS 5 % (0-10); % SEGS 68 % (35-66); PLT ESTIMATE ADEQUATE (ADEQUATE)
[2021-03-03 18:35] LABS: BILIRUBIN,URINE NEGATIVE (NEG); CLARITY,URINE CLEAR; COLOR,URINE YELLOW; NITRITE,URINE NEGATIVE (NEG); PH,URINE 6.5 (<5.0-8.0); PROTEIN,URINE NEGATIVE (NEG-TRACE); UROBILINOGEN,URINE 0.2 mg/dL (0.2 mg/dL)
[2021-03-03 18:45] LABS: BACTERIA,URINE 0 /HPF (0-FEW)
[2021-03-03] MEDS ORDERED: MORPHINE SULFATE 2 MG/ML VIAL. IV ONE (18:45)
[2021-03-03] MEDS ORDERED: DICYCLOMINE 20 MG/2 ML VIAL. IM ONE ×2 (19:06→19:15)
[2021-03-03 19:15] VITALS: BP 137/85
--- NOTE | 2021-03-03 19:38 | EKG ---
[facility] [address] [place] [address] Test Date: 2021-03-03 Test Time: 17:10:07 Pat Name: ABIGAIL HARO Department: Room: Gender: M Tack Puller: : 1985 Requested By: MARGAUX CUTLER Order Number: [id number] Reading MD: Measurements Intervals [place] Rate: 103 P: 90 WI: 150 QRS: 89 QRSD: 92 T: 42 QT: 348 QTc: 458 Interpretive Statements SINUS TACHYCARDIA ATRIAL PREMATURE COMPLEX(ES) OTHERWISE NORMAL ECG RI6.01 No previous ECG available for comparison
== END 2021-03-03 19:33 | disposition home or self-care (01) ==
LOC: ER 16:20
DX: R10.13 Epigastric pain (principal); R11.2 Nausea with vomiting, unspecified; K21.9 Gastro-esophageal reflux disease without esophagitis; I10 Essential (primary) hypertension; F17.200 Nicotine dependence, unspecified, uncomplicated; F12.90 Cannabis use, unspecified, uncomplicated; Z88.0 Allergy status to penicillin
CPT/HCPCS: 36415; 74177; 80053; 81001; 82553; 83690; 84484; 85007; 85025; 93005; 96361; 96374; 96375; 96376; 99285; J0500; J1885; J2270; J2405; J3490; J7030; Q9967

== ENCOUNTER 2021-08-25 04:31 | Emergency (ER) | payer OTHER ==
[~2021-08-25] VITALS: Ht 177.8 cm; Wt 104.5 kg
[~2021-08-25 04:31] MED LIST changes: +FAMO-63 PO; +HYOS0.1265 SL; +ONDA4TAB12 PO
--- NOTE | 2021-08-25 05:01 | PHYS DOC ---
Past Medical History Past Medical History: GERD, Hypertension, Other Additional Past Medical Histor: gastroparesis (NADIYA LEONARD DO) Past Surgical History: No Surgical History (NADIYA LEONARD DO) Smoking Status: Current Every Day Smoker Alcohol Use: None Drug Use: Marijuana (NADIYA LEONARD DO) General Adult EDM: Chief Complaint: ABDOMINAL PAIN HPI: HPI: Patient is a 36-year-old male presenting for abdominal pain. He was recently seen and evaluated at local ER within the last couple of hours but eloped. Patient states they attempted 2 IVs that were unsuccessful and it was recommended that he come here for evaluation. Nonetheless, when calling the outside facility, they stated that he is unknown frequent flyer at their facility with numerous ER visits this past month for same symptoms. He was offered a GI cocktail and Phenergan for his symptoms but eloped prior to receiving any intervention. He has known history of gastritis and hiatal hernia that is being covered in outpatient setting by [facility]. He has history of hypertension which she is on medications for, no other medications to address hiatal hernia or ongoing abdominal issues. States symptoms started and have been constant. He endorses epigastric pain that radiates globally to his abdomen and is severe in intensity, he has not taken anything in attempt to alleviate his symptoms. On arrival he admits ongoing nausea with dry heaving. He is fully vaccinated against Covid (NADIYA LEONARD DO) Review of Systems: Review of Systems: Fourteen body systems of review of systems have been reviewed. See HPI for pertinent positives and negative responses, other schaffer all other systems are negative, non-pertinent or non-contributory (NADIYA LEONARD DO) Heart Score: C/O Chest Pain: No Risk Factors: Risk Factors: DM, Current or recent (<one month) smoker, HTN, HLP, family history of CAD, obesity. Risk Scores: Score 0 - 3: 2.5% MACE over next 6 weeks - Discharge Home Score 4 - 6: 20.3% MACE over next 6 weeks - Admit for Clinical Observation Score 7 - 10: 72.7% MACE over next 6 weeks - Early Invasive Strategies (NADIYA LEONARD DO) C/O Chest Pain: N/A (FABBY TODD DO) Allergies: Allergies: Allergies Coded Allergies Type Severity Reaction Last Updated Verified Penicillins Allergy Intermediate 02/05/16 Yes (NADIYA LEONARD DO) Physical Exam: PE: Constitutional: Well-developed age-appropriate male in moderate distress rolling around on ER cart due to pain, nontoxic HENT: Normocephalic, atraumatic, bilateral external ears normal, oropharynx moist, no oral exudates, nose normal. Eyes: PERRLA, EOMI, conjunctiva normal, no discharge. Neck: Normal range of motion, no tenderness, supple, no stridor. Cardiovascular: Heart rate regular, sinus rhythm, no murmurs rubs or gallops Lungs & Thorax: Bilateral breath sounds clear to auscultation Abdomen: Bowel sounds normal, soft, epigastric tenderness to palpation with voluntary guarding present, no rebound, no masses, no pulsatile masses. Nonsurgical abdomen, no peritoneal signs Skin: Warm, dry, no erythema, no rash. Back: No tenderness, no CVA tenderness. Extremities: No tenderness, no cyanosis, no clubbing, ROM intact, no edema. Neurologic: Alert and oriented X 3, grossly normal motor & sensory function, no focal deficits noted. Psychologic: Anxious affect and mood (NADIYA LEONARD DO) Current Patient Data: Labs: Laboratory Tests Test 08/25/21 05:20 Urine Opiates Screen Neg Urine Methadone Screen Neg Urine Barbiturates Neg Urine Phencyclidine Screen Neg Urine Amphetamine/Methamphetamine Neg Urine Benzodiazepines Screen Neg Urine Cocaine Screen Neg Urine Cannabinoids Screen Pos Urine Ethyl Alcohol Neg Current Medications Medications (Trade) Dose Ordered Sig/Yaquelin Route PRN Reason Start Time Stop Time Status Last Admin Dose Admin Multi-Ingredient Mouthwash/Gargle (Gi Cocktail) 20 ml 1X ONCE SWSW 08/25/21 05:30 08/25/21 05:31 DC 08/25/21 05:03 Promethazine HCl (Phenergan) 12.5 mg 1X ONCE PO 08/25/21 06:00 08/25/21 06:01 08/25/21 05:32 Vital Signs: Vital Signs Date Time Temp Pulse Resp B/P (MAP) Pulse Ox O2 Delivery O2 Flow Rate FiO2 08/25/21 04:48 98.6 102 16 168/78 (108) 98 Room Air 98.6 (NADIYA LEONARD DO) EKG: EKG: [] (NADIYA LEONARD DO) Radiology/Procedures: Radiology/Procedures: [] (NADIYA LEONARD DO) Radiology/Procedures: [facility] [address] [place] [address] IMAGING REPORT Signed PATIENT: ABIGAIL HAROCOUNT: [id number] : 1985 LOCATION: ER AGE: 36 SEX: M EXAM STATUS: REG ER ORD. PHYSICIAN: FABBY TODD DO REASON: Abdominal pain PROCEDURE: CT ABD PELV W/ IV CONTRST ONLY Exam: CT abdomen/pelvis with intravenous contrast Indication: Abdominal pain Comparison: CT abdomen pelvis 03/19/2021 Technique: Helical CT imaging performed of the abdomen and pelvis after the in travenous administration of 60 mL Omnipaque 300 contrast. Sagittal and coronal reformats were obtained. One or more of the following individualized dose reduction techniques were utilized for this examination: 1. Automated exposure control 2. Adjustment of the mA and/or kV according to patient size 3. Use of iterative reconstruction technique. Findings: Lower chest: There are patchy, somewhat geographic and peripheral groundglass opacities in the right lung base, new from 03/03/2021 but similar to 10/04/2020. The left lung base is clear. The heart is normal in size. Liver: The liver measures 19.5 cm in length. There is unchanged focal fat along the falciform ligament. No new liver lesions. Gallbladder/Biliary Tree: Normal. Pancreas: Normal. Spleen: Normal. Adrenal Glands: Normal Kidneys/Ureters/Bladder: Kidneys are normal in size and enhance symmetrically. Subcentimeter hypodensities bilaterally are too small to characterize but likely simple cysts. There is no hydronephrosis. Ureters and bladder are normal. Reproductive Organs: Normal. Stomach, small bowel, and colon: Small hiatal hernia. The small bowel and appendix are normal. There is mild sigmoid diverticulosis without acute diverticulitis. Vasculature: The abdominal aorta is normal in caliber. Lymph Nodes: There is no lymphadenopathy. Peritoneum and retroperitoneum: No free fluid or free air. Bones: No acute osseous abnormality. Unchanged small bone island in the left femoral head. Impression: 1. No acute abnormality of the abdomen and pelvis. 2. Mild patchy groundglass opacities in the right lung base are nonspecific but could reflect atypical pneumonia, aspiration, or pneumonitis. These are new from 03/03/2021 but similar to 10/04/2020. 3. Small hiatal hernia. Mild colonic diverticulosis. Electronically signed by: Mariela Prajapati MD (08/25/2021 8:07 AM) [id number] DICTATED and SIGNED BY: MARIELA PRAJAPATI MD DATE: 08/25/21 [id number] (FABBY TODD DO) Course & Med Decision Making: Course & Med Decision Making ABCs unremarkable GI cocktail and Phenergan were administered without significant relief in symptoms. Patient positive for marijuana which he states he stopped smoking over 1 month ago as this could be exacerbating his chronic abdominal symptoms At this time in care, patient still pending laboratory analysis. Comprehensive signout was given to oncoming physician. Please defer to Dr. Todd's documentation regarding future care of patient while in ER setting (NADIYA LEONARD DO) Course & Med Decision Making Patient is a 36-year-old male who present to ER for evaluation of abdominal pain. Patient has chronic abdominal pain, he has been evaluated here multiple times, he was seen at multiple different ER for the same problem. Patient said he was seen by GI specialist in the past for the same problem, they recommend him to stop smoking marijuana and he did 1 month ago. I suspected that patient has cyclic vomiting syndrome gastroparesis. Patient was given IV fluid and IV Reglan with pain medication in the ER, he feels much better. Patient will be discharged home, he will need to follow-up with his family physician for outpatient evaluation and treatment. Patient is amenable to plan of care (FABBY TODD DO) Dragon Disclaimer: Sukhi Disclaimer: This electronic medical record was generated, in whole or in part, using a voice recognition dictation system. (NADIYA LEONARD DO) Departure Departure Impression: Primary Impression: Abdominal pain Additional Impression: Cyclic vomiting syndrome Disposition: HOME / SELF CARE / HOMELESS Condition: IMPROVED Referrals: TRISTAN TRISTAN DO (PCP) Follow up with your doctor next week. Patient Instructions: Cyclic Vomiting Syndrome Additional Instructions: Thank you for visiting our Emergency Department. We appreciate you trusting us with your care. If any additional problems come up don't hesitate to return to visit us. Please follow up with your primary care provider so they can plan additional care if needed and know about the problem that you had. If symptoms worsen come back to the Emergency Department. Any concerning symptoms that start such as chest pain, shortness of air, weakness or numbness on one side of the body, running high fevers or any other concerning symptoms return to the ER. Scripts Metoclopramide Hcl (REGLAN) 10 Mg Tablet 1 TAB PO QID PRN for NAUSEA, #30 TAB 0 Refills before food and bedtime Prov: FABBY TODD DO 08/25/21 NADIYA LEONARD DO Aug 25, 2021 05:00 FABBY TODD DO Aug 25, 2021 08:44
[2021-08-25] MEDS ORDERED: LIDO:MAALOX 1:1 20 ML SINGLE DOSE. SWSW ONE (05:30)
[2021-08-25 05:33] LABS: BARBITURATES NEG (NEG); BENZODIAZEPINES NEG (NEG); CANNABINOIDS POS (NEG); COCAINE NEG (NEG); METHADONE NEG (NEG); OPIATES NEG (NEG); PHENCYCLIDINE NEG (NEG)
[2021-08-25 05:35] LABS: AMPHETAMINE/METHAMPHETAMINE NEG (NEG)
[2021-08-25] MEDS ORDERED: PROMETHAZINE 12.5 MG TABLET. PO ONE (06:00)
[2021-08-25] MEDS ORDERED: PANTOPRAZOLE IV PUSH 40 MG VIAL. IVP ONE (06:00)
[2021-08-25 06:15] LABS: BASO # 0.1 x10^3/uL (0.0-0.2); BASO % 1 % (0-3); EOS # 0.1 x10^3/uL (0.0-0.7); EOS % 0 % (0-3); HEMATOCRIT 40.9 % (39.0-53.0); HEMOGLOBIN 14.9 g/dL (13.0-17.5); LYMPH # 2.6 x10^3/uL (1.0-4.8); LYMPH % 16 % (24-48); MEAN CORPUSCULAR HEMOGLOBIN 32 pg (25-35); MEAN CORPUSCULAR HGB CONC 36 g/dL (31-37); MEAN CORPUSCULAR VOLUME 89 fL (79-100); MONO # 2.3 x10^3/uL (0.0-1.1); MONO % 15 % (0-9); NEUT # 10.8 x10^3/uL (1.8-7.7); NEUT % 68 % (31-73); PLATELET COUNT 411 x10^3/uL (140-400); RED BLOOD COUNT 4.61 x10^6/uL (4.30-5.70); RED CELL DISTRIBUTION WIDTH 12.3 % (11.5-14.5); WHITE BLOOD COUNT 15.9 x10^3/uL (4.0-11.0)
[2021-08-25 06:22] LABS: CALCIUM 9.5 mg/dL (8.5-10.1); CREATININE 1.4 mg/dL (0.7-1.3); GFR 57.7; POTASSIUM 3.1 mmol/L (3.5-5.1)
[2021-08-25 06:27] LABS: ALBUMIN 4.2 g/dL (3.4-5.0); ALBUMIN/GLOBULIN RATIO 1.1 (1.0-1.7); TOTAL BILIRUBIN 0.9 mg/dL (0.2-1.0); TOTAL PROTEIN 8.2 g/dL (6.4-8.2)
[2021-08-25] MEDS ORDERED: IV NORMAL SALINE 1000ML BAG 1,000 ML IV ONE (07:15)
[2021-08-25] MEDS ORDERED: IOHEXOL 300 MG/ML 100ML VIAL. IV ONE (07:30)
[2021-08-25] MEDS ORDERED: CONTRAST GIVEN. MC PRN (07:30)
[2021-08-25] MEDS ORDERED: MORPHINE SULFATE 4 MG/ML INJ. IVP ONE (07:45)
[2021-08-25] MEDS ORDERED: POTASSIUM PHOSPHATE,MONOBASIC 500 MG TABLET. PO ONE (07:45)
[2021-08-25] MEDS ORDERED: METOCLOPRAMIDE HCL 10 MG/2 ML VIAL. IVP ONE (07:45)
[2021-08-25 07:52] LABS: % BANDS 1 % (0-9); % LYMPHS 20 % (24-48); % MONOS 3 % (0-10); % SEGS 76 % (35-66); PLT ESTIMATE ADEQUATE (ADEQUATE)
--- NOTE | 2021-08-25 08:09 | RAD ---
Exam: CT abdomen/pelvis with intravenous contrast Indication: Abdominal pain Comparison: CT abdomen pelvis 03/19/2021 Technique: Helical CT imaging performed of the abdomen and pelvis after the intravenous administratio n of 60 mL Omnipaque 300 contrast. Sagittal and coronal reformats were obtained. One or more of the following individualized dose reduction techniques were utilized for this examinat ion: 1. Automated exposure control 2. Adjustment of the mA and/or kV according to patient size 3. Use of iterative reconstruction technique. Findings: Lower chest: There are patchy, somewhat geographic and peripheral groundglass opacities in the right lung base, new from 03/03/2021 but similar to 10/04/2020. The left lung base is clear. The heart is norm al in size. Liver: The liver measures 19.5 cm in length. There is unchanged focal fat along the falciform ligamen t. No new liver lesions. Gallbladder/Biliary Tree: Normal. Pancreas: Normal. Spleen: Normal. Adrenal Glands: Normal Kidneys/Ureters/Bladder: Kidneys are normal in size and enhance symmetrically. Subcentimeter hypodens ities bilaterally are too small to characterize but likely simple cysts. There is no hydronephrosis. Ureters and bladder are normal. Reproductive Organs: Normal. Stomach, small bowel, and colon: Small hiatal hernia. The small bowel and appendix are normal. There is mild sigmoid diverticulosis without acute diverticulitis. Vasculature: The abdominal aorta is normal in caliber. Lymph Nodes: There is no lymphadenopathy. Peritoneum and retroperitoneum: No free fluid or free air. Bones: No acute osseous abnormality. Unchanged small bone island in the left femoral head. Impression: 1. No acute abnormality of the abdomen and pelvis. 2. Mild patchy groundglass opacities in the right lung base are nonspecific but could reflect atypic al pneumonia, aspiration, or pneumonitis. These are new from 03/03/2021 but similar to 10/04/2020. 3. Small hiatal hernia. Mild colonic diverticulosis. Electronically signed by: Mariela Prajapati MD (08/25/2021 8:07 AM) [id number]
[2021-08-25] MEDS ORDERED: METO10TA81 PO (08:44)
[2021-08-25 08:45] VITALS: BP 139/74
--- NOTE | 2021-08-26 15:45 | NUR ---
IP: Patient notified of negative COVID19 test result. Verbalized understanding.
== END 2021-08-25 08:53 | disposition home or self-care (01) ==
LOC: ER 04:31
DX: R10.13 Epigastric pain (principal); Z20.822 Contact with and (suspected) exposure to COVID-19; R11.15 Cyclical vomiting syndrome unrelated to migraine; K21.9 Gastro-esophageal reflux disease without esophagitis; I10 Essential (primary) hypertension
CPT/HCPCS: 36415; 74177; 80053; 80307; 83690; 83735; 85007; 85025; 87426; 96361; 96374; 96375; 99285; C9113; J2270; J2765; J7030; Q0169; Q9967; U0003; U0005